=== PATIENT | male | born 1980 | race Caucasian/White ===

== ENCOUNTER 2023-10-06 00:18 | Emergency (ER) | payer BC ==
[~2023-10-06] VITALS: Ht 180.3 cm; Wt 77.1 kg
[2023-10-06] MEDS ORDERED: HYDROMORPHONE 1 MG/1 ML DISP.SYRIN ONE ×2 (00:40→01:39)
[2023-10-06] MEDS ORDERED: DIAZEPAM 10 MG/2 ML DISP.SYRIN ONE ×2 (00:41→01:40)
[2023-10-06] MEDS ORDERED: HYDROMORPHONE 1 MG/1 ML DISP.SYRIN IV ONE ×2 (00:45→01:45)
[2023-10-06] MEDS ORDERED: DIAZEPAM 10 MG/2 ML DISP.SYRIN IV ONE ×2 (00:45→01:45)
[2023-10-06] MEDS ORDERED: ALPR0.5T PO (01:18)
[2023-10-06] MEDS ORDERED: ONDA4TAB5 PO (01:18)
[2023-10-06] MEDS ORDERED: HYDR-3980 PO (01:18)
[2023-10-06 02:14] VITALS: BP 138/75; TEMP 97.8; O2SAT 97
== END 2023-10-06 02:15 | disposition home or self-care (01) ==
LOC: ER 00:27
DX: M62.830 Muscle spasm of back (principal); M54.50 Low back pain, unspecified; F41.9 Anxiety disorder, unspecified
CPT/HCPCS: A4606; A4663; J1170; J3360